=== PATIENT | female | born 1990 | race Caucasian/White ===

== ENCOUNTER → 2016-11-29 | Outpatient (CLI) | payer BC ==
[~2016-11-29] MED LIST: OXYC-57 PO; PRENTAB26 PO
--- NOTE | 2016-11-29 13:58 | MAMMOGRAPHY REPORT ---
ULTRASOUND OF RIGHT BREAST: 11/29/2016 CLINICAL HISTORY: The patient is currently nursing, and has been nursing for approximately 4 months. In August she had an episode of right breast mastitis and had an associated lump at that time. The mastitis resolved on the antibiotics and the lump has slowly become smaller although she can sti ll feel a residual lump. She currently has no erythema or pain of the right breast. COMPARISON: No prior exams were available for comparison. TECHNIQUE: Real-time targeted ultrasound of the right breast was performed. FINDINGS: Real-time, high resolution targeted ultrasound was performed of the area of the palpable lump pointe d out by the patient. It is difficult for the patient to feel the lump today although she could poi nt to the location of the lump. At the site of the palpable lump, in the right breast at 1:00, 6 cm from the nipple, there is a round isoechoic 9 x 9 x 10 mm mass with a thin hypoechoic rim. No inte rnal vascularity is evident. Surrounding expected lactational changes are seen. Given the isoechoi c appearance of the mass and given that the mass is clinically decreased in size, it is probably sasha ign. Some considerations include a clogged milk duct, galactocele, possibly a fibroadenoma/lactatin g adenoma. No fluid collection is seen to suggest abscess. IMPRESSION: ACR-BI-RADS CATEGORY 3: PROBABLY BENIGN - FOLLOW-UP RECOMMENDED Isoechoic 10 mm mass seen within the right breast at 1:00 at the site of the palpable lump which has clinically decreased in size. The mass is probably benign given the isoechoic appearance and given the clinical decrease in size. Recommend follow-up ultrasound of the right breast in 3 months to r gerrivaluate. Also recommend clinical follow-up; if the mass clinically increases in size then follow- up should be obtained sooner. The patient was verbally notified of the results. Lupe Merino M.D. /:11/29/2016 08:20:42 Machine Fastener: Francheska HUERTA)(Luz), [facility] letter sent: Follow Up Recommended 3 BI-RADS Code: ACR-BI-RADS Category 3: Probably Benign
== END | disposition home or self-care (01) ==
LOC: C.MAMM 07:58
PROVIDERS: ATTEND Obstetrics & Gynecology
DX: N63 Unspecified lump in breast (principal)

== ENCOUNTER → 2017-04-14 | Outpatient (CLI) | payer BC ==
[~2017-04-14] MED LIST changes: -OXYC-57 PO
--- NOTE | 2017-04-14 14:31 | MAMMOGRAPHY REPORT ---
ULTRASOUND OF RIGHT BREAST: 04/14/2017 CLINICAL HISTORY: 26-year-old lactating woman presents for follow-up of a benign-appearing mass in th e 1:00 right breast, 6 cm from the nipple. She does not feel the lump today. COMPARISON: Comparison is made to exam dated: 11/29/2016 ultrasound - [facility]. FINDINGS: Targeted ultrasound was performed in the 1:00 right breast to reevaluate the benign-appear ing isoechoic 9 x 9 x 10 mm mass as described on the previous ultrasound. In the 1:00 axis, 6 cm fro m the nipple, a mass is no longer identified. Lactational changes are again noted. IMPRESSION: ACR BI-RADS CATEGORY 2: BENIGN There is resolution of the previously observed mass in the 1:00 right breast, 6 cm from the nipple, c onfirming benignity. There is no targeted sonographic evidence of malignancy. Continued clinical mo nitoring is recommended. These results and recommendations were discussed with the patient at the ti me of the exam. Annette Cuellar M.D. ay/:04/14/2017 09:21:20 Pallet Repairer: Dr. Annette Cuellar, [facility] letter sent: Normal 1/2 BI-RADS Code: ACR BI-RADS Category 2: Benign
== END | disposition home or self-care (01) ==
LOC: C.MAMM 08:50
PROVIDERS: ATTEND Physician Assistant
DX: N63 Unspecified lump in breast (principal)

== ENCOUNTER → 2018-04-24 | Outpatient (CLI) | payer OTHER | END | disposition home or self-care (01) | LOC: C.PAPS 13:55 | PROVIDERS: ATTEND Obstetrics & Gynecology | DX: Z34.81 Encounter for supervision of other normal pregnancy, first trimester (principal); Z11.51 Encounter for screening for human papillomavirus (HPV) ==

== ENCOUNTER → 2018-05-04 | Outpatient (CLI) | payer OTHER | END | disposition home or self-care (01) | LOC: C.LAB1850 09:01 | PROVIDERS: ATTEND Obstetrics & Gynecology | DX: O02.1 Missed abortion (principal) ==

== ENCOUNTER → 2018-05-11 | Outpatient (CLI) | payer OTHER | END | disposition home or self-care (01) | LOC: C.LAB1850 08:03 | PROVIDERS: ATTEND Obstetrics & Gynecology | DX: O02.1 Missed abortion (principal) ==

== ENCOUNTER → 2018-05-18 | Outpatient (CLI) | payer OTHER | END | disposition home or self-care (01) | LOC: C.LAB1850 08:09 | PROVIDERS: ATTEND Obstetrics & Gynecology | DX: O02.1 Missed abortion (principal) ==

== ENCOUNTER → 2018-05-27 | Outpatient (CLI) | payer OTHER | END | disposition home or self-care (01) | LOC: C.LAB1850 16:11 | PROVIDERS: ATTEND Obstetrics & Gynecology | DX: O02.1 Missed abortion (principal) ==

== ENCOUNTER 2021-08-02 05:35 | Inpatient (IN) ==
--- NOTE | 2021-07-06 14:00 | Anesthesiology Consultation ---
Date of Service July 06, 2021 Assessment & Plan (1) Encounter for pre-operative examination: Chart Review Chart Review: entry examiner initiated -With initial - patient had high spinal which caused decreased oxygen levels and resulted with patient having to have GA. No issues noted with most recent from 2019. Per nursing assessment 07/06/2021, no recent travel. No known Covid infection in the past 90 days. Patient vaccinated for Covid. No known Covid positive contacts or Covid related symptoms. Preop Covid testing scheduled 07/31/2021. 05/31/2019 = done under SAB at L4-5 with 1 attempt. History Surgery Operation Date: 08/02/21 07:30 Proposed Procedures p Section in LD (Delivery of Baby Through Abdominal Incision) - Sherrill Bennett MD, FACOG s with Bilateral Tubal Ligation - Sherrill Bennett MD, FACOG Height/Weight Height: 5 ft 3 in Weight: 68.946 kg Allergies Allergy/AdvReac Type Severity Reaction Status Date / Time shellfish derived Allergy Mild RASH Verified 07/06/21 11:14 iodine Allergy Unknown RASH Verified 07/06/21 11:14 Medications Home Medications Medication Instructions Recorded Confirmed Last Taken prenat.vits,vlad,omp-utlt-wjeiw 1 tab PO QPM 05/04/19 07/06/21 05/30/19 20:00 valacyclovir 1 gram tablet 1,000 mg PO DAILY PRN #12 tab 05/04/19 07/06/21 Unknown Past Medical History Medical History Dry eye syndrome History of miscarriage, currently Hx of cold sores Past Family History Family History Grandmother (Maternal) Breast cancer Daughter Cavernous malformation Grandmother (Paternal) Diabetes Denies family history of Ovarian cancer Colorectal cancer Uterine cancer Past Surgical History Surgical History History of anesthesia problem WITH INITIAL C SECTION PT WAS GIVEN A HIGH SPINAL AND ENDED UP NEEDING GA DUE TO DROPPING PULSE OX. -NO ISSUES NOTED WITH SUBSEQUENT IN 2019 History of delivery x2 Hx of adenoidectomy Hx of cholecystectomy Nausea and vomiting after administration of anesthetic agent Social History Smoking Status: Never smoker Do You Dip or Chew Tobacco: No Hx Alcohol Use: No Hx Substance Use: No substance use type: does not use
--- NOTE | 2021-08-01 14:03 | History & Physical Report ---
Date of Service August 01, 2021 Assessment & Plan (1) Previous delivery affecting , antepartum: Plan: Repeat section and bilateral tubal ligation The patient was counseled to the nature of the procedure including alternatives such as labor. Risks were discussed including bleeding infection injury to bowel bladder ureter vessels and even baby. The risks of internal organ injury were discussed as being higher with prior sections. Deep Vein Thrombosis, pulmonary embolus and breakdown of the incision discussed. Deep vein thrombosis pulmonary embolus hernia and failure of the incision to heal were discussed Patient verbalized understanding of this and was given ample time to ask questions History of Present Illness Primary Care Provider: NO PCP repeat C/S and tubal ligation Allergies Allergy/AdvReac Type Severity Reaction Status Date / Time shellfish derived Allergy Mild RASH Verified 08/01/21 08:39 iodine Allergy Unknown RASH Verified 08/01/21 08:39 Home Medications Medication Instructions Recorded Confirmed Type prenat.vits,vlad,aja-lnpl-mswfb 1 tab PO QPM 05/04/19 08/01/21 History valacyclovir 1 gram tablet 1,000 mg PO DAILY PRN #12 tab 05/04/19 08/01/21 History Patient History Medical History Dry eye syndrome History of miscarriage, currently Hx of cold sores Surgical History History of anesthesia problem WITH INITIAL C SECTION PT WAS GIVEN A HIGH SPINAL AND ENDED UP NEEDING GA DUE TO DROPPING PULSE OX. -NO ISSUES NOTED WITH SUBSEQUENT IN 2019 History of delivery x2 Hx of adenoidectomy Hx of cholecystectomy Nausea and vomiting after administration of anesthetic agent Family History Grandmother (Maternal) Breast cancer Daughter Cavernous malformation Grandmother (Paternal) Diabetes Denies family history of Ovarian cancer Colorectal cancer Uterine cancer Social History Smoking Status: Never smoker Second Hand Exposure: No; Hx Alcohol Use: No Hx Substance Use: No Preferred Language: Turkmen Communication Ability: Effective Visual Impairment: No Limitations Hearing Ability: Normal Complex Director Required: No Beliefs That Will Affect Care: None marital status: marital status details: Dayday Hernandez (36) [phone] Current Living Situation: Spouse and Family Current Living Situation Comment: lives with spouse, 2 children, dogs, hermit crab, fish, cats-spouse aquilino current occupational status: employed 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
[2021-08-02] MEDS ORDERED: LACTATED RINGER'S 1,000 ML IV SCH ×2 (06:00→08:45)
[2021-08-02] MEDS ORDERED: CITRIC ACID/SODIUM CITRATE 15 ML UDC PO SCH (06:00)
[2021-08-02] MEDS ORDERED: ceFAZolin 2,000 MG in SYRINGE 0 ML IV SCH (06:00)
[2021-08-02 06:07] LABS: Basophils # (auto) 0.03 K/uL (0-0.2); Basophils % (auto) 0.3 %; Eosinophils # (auto) 0.23 K/uL (0-0.5); Eosinophils % (auto) 2.3 %; Hematocrit (blood only) 37.6 % (37-47); Hemoglobin 13.1 g/dL (12.0-16.0); Immature Granulocytes # (auto) 0.21 K/uL (0.00-0.02); Immature Granulocytes % (auto) 2.1 %; Lymphocytes % (auto) 18.8 %; Mean Corpuscular Hemoglobin 32.3 pg (25-34); Mean Corpuscular Volume 92.6 fL (80-100); Monocytes # (auto) 0.64 K/uL (0.11-0.59); Monocytes % (auto) 6.3 %; Neutrophils % (auto) 70.2 %; Platelet Count 171 K/uL (130-400); RDW Coefficient of Variation 13.2 % (11.5-14.5); Red Blood Count 4.06 M/uL (4.2-5.4); White Blood Count 10.11 K/uL (4.8-10.8)
[2021-08-02] MEDS ORDERED: OXYTOCIN 10 UNITS/ML VIAL ONE (06:29)
[2021-08-02] MEDS ORDERED: MoRPHine SULFATE PF 1 MG/ML 10 ML AMP/VIAL ONE (06:29)
[2021-08-02] MEDS ORDERED: fentaNYL citrate 100 MCG/2 ML VIAL ONE (06:29)
[2021-08-02] MEDS ORDERED: PHENYLEPHRINE HCL 10 MG/ML VIAL ONE (06:29)
[2021-08-02] MEDS ORDERED: ONDANSETRON INJ 2 MG/ML 2 ML VIAL ONE (06:29)
[2021-08-02 06:31] LABS: Mean Corpuscular Hgb Conc 34.8 g/dL (32-36)
--- NOTE | 2021-08-02 07:08 | History & Physical Bridge Note ---
Date of Service August 02, 2021 History & Physical Bridge Note I have examined the patient, reviewed the History & Physical and in the interval since the performance of the History & Physical I have noted the following changes of clinical significance: no changes noted
[2021-08-02] MEDS ORDERED: NALOXONE HCL 0.08 MG in SYRINGE 1.8 ML IV PRN (07:52)
[2021-08-02] MEDS ORDERED: diphenhydrAMINE 50 MG/ML VIAL IV PRN (07:52)
[2021-08-02] MEDS ORDERED: NALBUPHINE HCL INJ 10 MG/ML AMP IV PRN (07:52)
[2021-08-02] MEDS ORDERED: ePHEDrine sulfate 50 MG/ML AMP IV PRN (07:52)
[2021-08-02] MEDS ORDERED: NALOXONE HCL 1 MG in SODIUM CHLORIDE 0.9% 1000ML 1,000 ML IV PRN (07:52)
[2021-08-02] MEDS ORDERED: MoRPHine SULFATE PF 1 MG/ML 10 ML AMP/VIAL INT SPINAL ONE (07:52)
[2021-08-02] MEDS ORDERED: NALOXONE HCL 0.4 MG/1 ML VIAL/CARP IV PRN (07:52)
[2021-08-02] MEDS ORDERED: LACTATED RINGER'S 500 ML IV PRN (07:52)
[2021-08-02] MEDS ORDERED: PROMETHAZINE HCL 12.5 MG in SODIUM CHLORIDE 0.9% 50 ML IV PRN (07:53)
[2021-08-02] MEDS ORDERED: ONDANSETRON INJ 2 MG/ML 2 ML VIAL IV PRN (07:53)
[2021-08-02] MEDS ORDERED: NO NARCOTICS OR SEDATIVES SCH (08:00)
[2021-08-02] MEDS ORDERED: SODIUM CHLORIDE 0.9% 1000ML 1,000 ML IV SCH ×2 (08:00→12:15)
[2021-08-02] MEDS ORDERED: HYDROCORTISONE ACETATE 25 MG SUPP PR PRN (08:32)
[2021-08-02] MEDS ORDERED: BENZOCAINE 20% AER SPR 82.5 GM CAN EXT PRN (08:32)
[2021-08-02] MEDS ORDERED: MAGNESIUM HYDROXIDE SUSP 30 ML UDC PO PRN (08:32)
[2021-08-02] MEDS ORDERED: SUPERCREAM 0.870% 15 GM JAR EXT PRN (08:32)
[2021-08-02] MEDS ORDERED: SENNA 8.6 MG TAB PO PRN (08:32)
[2021-08-02] MEDS ORDERED: DIPHTHERIA/TETANUS/PERTUSSIS 0.5 ML SYR/VIAL IM ONE (08:32)
--- NOTE | 2021-08-02 08:50 | Operative Report ---
PG Post Operative Report Pre & Post Diagnosis Operation Date: 08/02/21 07:30 Pre-Op Diagnosis: History of ; Request for Sterilization Post-Op Diagnosis: Same; Delivery of a live male child at 0801 ( Main OR 3) I identified the patient and participated in the time-out.: Yes Procedure Operation Date: 08/02/21 07:30 Actual Procedures p Section in LD (Delivery of Baby Through Abdominal Incision) - Sherrill Bennett MD, FACOG s with Bilateral Tubal Ligation - Sherrill Bennett MD, FACOG Surgeon Sherrill Bennett MD, FACOG Traffic Personnel Supervisor Dr. Chappell Estimated Blood Loss 300 Findings Consistent with Post-Op Diagnosis see op note Specimens Bilateral tube portions, cord blood, hases Drains Jackson Description of Procedure Regional anesthetic was given by anesthesia patient had a Jackson catheter inserted by nursing patient was prepped and draped in supine position with a leftward tilt preoperative antibiotics were given timeout performed Pickups with teeth were used to test the skin site and it was found adequate for incision scalpel used to make a Pfannenstiel incision cutting down through subcutaneous fat through the fascia fascia was then dissected laterally with the curved Gonsalez's fascia was released superiorly and inferiorly from the rectus muscles with the curved Gonsalez scissors, rectus muscle split peritoneal cavity entered in a superior location. Opening enlarged to allow exposure bladder retractor placed Metzenbaums used to dissect away the bladder flap low segment transverse incision made on the uterus with scalpel entry was done bluntly with the centrifuge separator operator's finger hysterotomy incision extended with the centrifuge separator operator's finger in the usual fashion baby was delivered then by attempted flexion of the head, but it would not come. Vacuum applied and then we were able to deliver the baby's head without difficulty and pressure from the occupational therapy assistant on the abdomen mouth and then nares were suctioned baby was then delivered fully without difficulty without excessive force live vigorous cord clamped and cut cord gases obtained cord blood obtained placenta removed manually within ensured all placenta removed with a moist lap sponge uterus exteriorized IV Pitocin had been started by anesthesia and uterine tone improved. The uterus was closed in 2 layers first layer and 0 Monocryl running locked second layer 0 Monocryl nonlocked Patient requested tubal ligation this was performed first on the right fallopian tube using modified [place] technique Alejandro used to grasp the isthmic portion of the tube and then both distal and proximal ends of the tube near the [place] were sutured with 0 chromic and a second free tie of 0 chromic just adjacent to this tie small portion of fallopian tube then cut out with Metzenbaums and sent to pathology hemostasis excellent. Same process was repeated on the left side. When the uterus was placed back in the peritoneal cavity after suction irrigation we did inspect the tubal regions these were hemostatic rectus muscles were inspected and found to be dry and reapproximated with 0- vicryl. fascia closed with 0 Vicryl subcutaneous fat closed with 3-0 Vicryl prior to this subcutaneous fat was irrigated skin closed with 4-0 subcuticular Monocryl incision Dermabond applied I attest to the content of the Intraoperative Record and any orders documented therein. Any exceptions are noted below. OB Procedure Charges 35081 [id number] Add on Tubal for C/S
[2021-08-02] MEDS: OXYTOCIN 20 UNITS in LACTATED RINGER'S 1,000 ML IV SCH ×2 (09:03→17:22)
[2021-08-02 09:09] LABS: Base Excess Cord Arterial Bld -1.9 mEq/L (-9-1.8); CO2 Cord Arterial Blood 60 mmHg (39.1-73.5); HCO3 Cord Arterial Blood 26 mmol/L (19.7-28.5); PO2 Cord Arterial Blood 19 mmHg (4.1-31.7); pH Cord Arterial Blood 7.26 (7.1-7.38)
[2021-08-02 09:13] LABS: Base Excess Cord Venous Blood -0.9 mEq/L (-7.7-1.9); Cord Venous Blood HCO3 26 mmol/L (18.4-26.8); Cord Venous Blood PCO2 50 mmHg (30.4-57.2); Cord Venous Blood PO2 21 mmHg (14.1-43.3); Cord Venous Blood pH 7.33 (7.20-7.44)
[2021-08-02 09:21] LABS: O2 Saturation Cord Venous Bld < 60.0 % (<68); Oxygen Sat Cord Arterial Blood < 60.0 % (<60)
--- NOTE | 2021-08-02 10:00 | Anesthesiology Progress Note ---
Date of Service August 02, 2021 Anesthesia Post Procedure Vital Signs Vital Signs: Temp Pulse Resp BP Pulse Ox 08/02/21 09:57 62 100 08/02/21 09:52 56 L 119/56 L 99 08/02/21 09:51 20 08/02/21 09:47 72 98 08/02/21 09:42 72 97 08/02/21 09:41 20 08/02/21 09:37 63 98 08/02/21 09:32 61 98 08/02/21 09:31 60 20 111/71 08/02/21 09:27 61 98 08/02/21 09:22 72 98 08/02/21 09:21 60 20 109/72 08/02/21 09:17 57 L 98 08/02/21 09:16 71 91 08/02/21 09:11 70 18 104/67 99 08/02/21 09:06 71 99 08/02/21 09:01 60 20 105/66 98 08/02/21 08:56 66 97 08/02/21 08:51 61 97 08/02/21 08:50 97.7 F 64 20 98/62 L 08/02/21 05:47 97.9 F 77 18 109/71 08/02/21 05:45 77 109/71 Transfer of Care Handoff Completed per policy Notes Mental Status: alert / awake / arousable and participated in evaluation Patient Amnestic to Procedure: Yes Nausea / Vomiting: adequately controlled Pain: adequately controlled Airway Patency, RR, SpO2: stable & adequate BP & HR: stable & adequate Hydration State: stable & adequate Neuraxial Anesthesia: was administered and sensory block is resolving Anesthetic Complications: no major complications apparent and Pt Satisfied with anesthetic care
[2021-08-02] MEDS ORDERED: ACETAMINOPHEN 1000 MG/100 ML IV IV PRN (12:15)
[2021-08-02] MEDS ORDERED: HYDROmorphone INJ 0.5 MG/0.5 ML SYR IV PRN (12:15)
[2021-08-02] MEDS ORDERED: KETOROLAC 30 MG/ML VIAL IV PRN (12:15)
[2021-08-02] MEDS: SIMETHICONE 80 MG CHEW PO SCH ×3 (14:42→19:18)
[2021-08-02] MEDS ORDERED: DOCUSATE SODIUM 100 MG CAP PO ONE (19:17)
[2021-08-02] MEDS: DOCUSATE SODIUM 100 MG CAP PO SCH (19:18)
[2021-08-03] MEDS ORDERED: DC INTRASPINAL MORPHINE ONE (01:52)
[2021-08-03] MEDS ORDERED: diphenhydrAMINE Capsule 25 MG CAP PO PRN (01:53)
[2021-08-03] MEDS ORDERED: MEPERIDINE HCL 50 MG/ML CARP IV PRN (01:53)
[2021-08-03] MEDS ORDERED: ONDANSETRON INJ 2 MG/ML 2 ML VIAL IV PRN (01:53)
[2021-08-03] MEDS ORDERED: PROMETHAZINE HCL 25 MG in SODIUM CHLORIDE 0.9% 50 ML IV PRN (01:53)
[2021-08-03] MEDS ORDERED: diphenhydrAMINE 50 MG/ML VIAL IV PRN (01:53)
[2021-08-03] MEDS ORDERED: KETOROLAC 30 MG/ML VIAL IV PRN (01:53)
[2021-08-03] MEDS ORDERED: oxyCODONE/ACETAMINOPHEN 5mg/325mg TAB PO PRN (01:53)
[2021-08-03 06:02] LABS: Basophils # (auto) 0.01 K/uL (0-0.2); Basophils % (auto) 0.1 %; Eosinophils # (auto) 0.15 K/uL (0-0.5); Eosinophils % (auto) 0.9 %; Hematocrit (blood only) 35.4 % (37-47); Hemoglobin 12.5 g/dL (12.0-16.0); Immature Granulocytes # (auto) 0.18 K/uL (0.00-0.02); Immature Granulocytes % (auto) 1.1 %; Lymphocytes # (auto) 0.69 K/uL (1.2-3.4); Lymphocytes % (auto) 4.2 %; Mean Corpuscular Hemoglobin 32.3 pg (25-34); Mean Corpuscular Hgb Conc 35.3 g/dL (32-36); Mean Corpuscular Volume 91.5 fL (80-100); Mean Platelet Volume 9.9 fL (7.4-10.4); Monocytes # (auto) 0.62 K/uL (0.11-0.59); Monocytes % (auto) 3.8 %; Neutrophils # (auto) 14.62 K/uL (1.4-6.5); Neutrophils % (auto) 89.9 %; Platelet Count 151 K/uL (130-400); RDW Coefficient of Variation 13.2 % (11.5-14.5); RDW Standard Deviation 43.5 fL (36.4-46.3); Red Blood Count 3.87 M/uL (4.2-5.4); White Blood Count 16.27 K/uL (4.8-10.8)
--- NOTE | 2021-08-03 06:41 | Obstetrical Progress Note ---
Date of Service <Tanna Torres DO - Last Filed: 08/03/21 07:04> August 03, 2021 Assessment & Plan <Tanna Torres DO - Last Filed: 08/03/21 07:04> (1) examination following delivery: 30 yo post op day1 from c/s, doing well. -Continue routine post care. Keep surgical scar clean and dry. -vital signs reviewed and WNL (Tmax 37.1) -Blood Type A+, GBS-, Rubella Immune -Encourage ambulation, monitor and control pain with Motrin, tylenol PRN, resume regular diet, monitor lochia -encourage breast feeding -hemoglobin 12.5 Day #:: 1 <Sherrill Bennett MD, FACOG - Last Filed: 08/03/21 07:15> (1) examination following delivery: Subjective <Tanna Torres DO - Last Filed: 08/03/21 07:04> Ambulation: ambulating normally Voiding: no voiding problems and no incontinence Passing Gas:: Yes Diet Tolerance:: regular diet Lochia:: Small Feeding Type:: breast feeding Current Pain Level(1-10): 5 (when walking) Review of Systems Denies fever, chills, sweats Denies shortness of breath, difficulty breathing, chest pain, palpitations, chest pressure. Denies breast pain. Denies dysuria. Denies headache or changes in vision. Physical Exam <Tanna Torres DO - Last Filed: 08/03/21 07:04> General: Alert, oriented. No acute distress. Cardiac: Regular rate and rhythm, no murmurs/rubs/gallops. Respiratory: Clear to auscultation bilaterally a/p, no wheezes/rales/rhonchi. No increased work of breathing. Symmetrical chest rise. No respiratory distress. Abdomen: Soft, nontender, nondistended. Bowel sounds present. Uterus: Uterine fundus firm, palpable 1 cm below umbilicus. Surgical scar clean and healing well. Lower Extremities: No lower extremity edema or swelling. No deep calf pain. Jamie's negative bilaterally. Results & Data ([facility]) <Tanna Torres DO - Last Filed: 08/03/21 07:04> Vital Signs (Past 12 Hours) Vital Signs Temp Pulse Resp BP Pulse Ox 08/03/21 03:15 37.1 C 72 16 100/62 96 08/03/21 01:30 16 97 08/03/21 00:40 16 95 08/02/21 23:30 37.2 C 81 16 109/68 97 08/02/21 22:00 20 96 08/02/21 20:15 37.2 C 82 20 101/62 96 <Sherrill Bennett MD, FACOG - Last Filed: 08/03/21 07:15> Co-Signing Physician Notes Resident Physician Supervision Note: I was present with Dr. Torres during the history and exam. I discussed the case with the resident and agree with the findings and plan as documented in the note. Any exceptions or clarifications are listed here: [None] Documented By: Sherrill Bennett MD, FACOG Resident Activity Tracking <Tanna oTrres DO - Last Filed: 08/03/21 07:04> Resident Involvement: Resident Care Provided Care Provided: OB Delivery
[2021-08-03] MEDS: DOCUSATE SODIUM 100 MG CAP PO SCH ×2 (08:29→20:17)
[2021-08-03] MEDS: PRENATAL VITAMIN 1 TAB PO SCH (08:29)
[2021-08-03] MEDS: SIMETHICONE 80 MG CHEW PO SCH ×4 (08:29→20:16)
[2021-08-03] MEDS: IBUPROFEN 600 MG TAB PO PRN ×4 (08:30→21:39)
[2021-08-03] MEDS: FERROUS SULFATE 325 MG TAB PO SCH (08:30)
[2021-08-03] MEDS ORDERED: bisacodyL 5 MG TABEC PO SCH (20:00)
[2021-08-03 21:16] VITALS: O2SAT 98
[2021-08-04] MEDS: IBUPROFEN 600 MG TAB PO PRN ×2 (05:20→08:58)
[2021-08-04 06:46] LABS: Hemoglobin 11.6 g/dL (12.0-16.0)
--- NOTE | 2021-08-04 06:51 | Obstetrical Progress Note ---
Date of Service <Tanna Torres DO - Last Filed: 08/04/21 07:41> August 04, 2021 Assessment & Plan <Tanna Torres DO - Last Filed: 08/04/21 07:41> (1) examination following delivery: 30 yo post op day2 from c/s, doing well. -Continue routine post care. Keep surgical scar clean and dry. -vital signs reviewed and WNL (Tmax 37.2) -Blood Type A+, GBS-, Rubella Immune -Encourage ambulation, monitor and control pain with Motrin, tylenol PRN, resume regular diet, monitor lochia -encourage breast feeding -hemoglobin 11.6 -patient comfortable going home today Day #:: 2 <Marcia Gasca MD, FACOG - Last Filed: 08/04/21 08:06> (1) examination following delivery: Subjective <Tanna Torres DO - Last Filed: 08/04/21 07:41> Ambulation: ambulating normally Voiding: no voiding problems Passing Gas:: Yes Diet Tolerance:: regular diet Lochia:: Small Feeding Type:: breast feeding Current Pain Level(1-10): 5 (when getting up) Review of Systems Denies fever, chills, sweats Denies shortness of breath, difficulty breathing, chest pain, palpitations, chest pressure. Denies breast pain. Denies dysuria. Denies headache or changes in vision. Physical Exam <Tanna Torres DO - Last Filed: 08/04/21 07:41> General: Alert, oriented. No acute distress. Cardiac: Regular rate and rhythm, no murmurs/rubs/gallops. Respiratory: Clear to auscultation bilaterally a/p, no wheezes/rales/rhonchi. No increased work of breathing. Symmetrical chest rise. No respiratory distress. Abdomen: Soft, nontender, nondistended. Bowel sounds present. Uterus: Uterine fundus firm, palpable 1 cm below umbilicus. Surgical scar clean and healing well. Lower Extremities: No lower extremity edema or swelling. No deep calf pain. Jamie's negative bilaterally. Results & Data ([facility]) <Tanna Torres DO - Last Filed: 08/04/21 07:41> Vital Signs (Past 12 Hours) Vital Signs Temp Pulse Resp BP Pulse Ox 10/29/21 23:15 37.2 C 80 18 107/66 08/03/21 20:10 36.6 C 69 18 103/70 98 <Marcia Gasca MD, FACOG - Last Filed: 08/04/21 08:06> Co-Signing Physician Notes Resident Physician Supervision Note: I was present with Dr. Torres during the history and exam. I discussed the case with the resident and agree with the findings and plan as documented in the note. Any exceptions or clarifications are listed here: [None] Documented By: Marcia Gasca MD, FACOG Resident Activity Tracking <Tanna Torres DO - Last Filed: 08/04/21 07:41> Resident Involvement: Resident Care Provided Care Provided: OB Delivery
[2021-08-04] MEDS ORDERED: bisacodyL 10 MG SUPP PR PRN (08:33)
[2021-08-04] MEDS: PRENATAL VITAMIN 1 TAB PO SCH (08:57)
[2021-08-04] MEDS: SIMETHICONE 80 MG CHEW PO SCH (08:58)
[2021-08-04] MEDS: DOCUSATE SODIUM 100 MG CAP PO SCH (08:58)
[2021-08-04] MEDS: FERROUS SULFATE 325 MG TAB PO SCH (08:58)
[2021-08-04 09:14] VITALS: BP 116/76; TEMP 98.1
[2021-08-04 11:13] VITALS: PULSE 70
--- NOTE | 2021-08-06 13:42 | Discharge Summary ---
Date of Service August 06, 2021 Admission HPI Per Admitting Provider repeat C/S and tubal ligation Admission Exam (Per Admitting) Constitutional WD/WN, vitals as above well developed and well nourished Respiratory normal respiratory effort, lungs clear to auscultation normal respiratory effort Cardiovascular RRR, no murmur, no edema Gastrointestinal (Abdomen) normal bowel sounds, soft, nontender, no hepatosplenomegaly Discharge Data Consultations 08/02/21 05:36 Consult Anesthesiology Stat Procedures Performed Operation Date: 08/02/21 07:30 Actual Procedures p Section in LD (Delivery of Baby Through Abdominal Incision) - Sherrill Bennett MD, FACOG s with Bilateral Tubal Ligation - Sherrill Bennett MD, FACOG Hospital Course (1) examination following delivery: 30 yo post op day2 from c/s, doing well. -Continue routine post care. Keep surgical scar clean and dry. -vital signs reviewed and WNL (Tmax 37.2) -Blood Type A+, GBS-, Rubella Immune -Encourage ambulation, monitor and control pain with Motrin, tylenol PRN, resume regular diet, monitor lochia -encourage breast feeding -hemoglobin 11.6 -patient comfortable going home today Supervising Physician Co-Signing Physician Notes Resident Physician Supervision Note: I was present with Dr. Torres during the history and exam. I discussed the case with the resident and agree with the findings and plan as documented in the note. Any exceptions or clarifications are listed here: [None] Documented By: Marcia Gasca MD, FACOG Coding Level of Care Code None Diagnoses examination following delivery Z39.2
== END 2021-08-04 10:25 | disposition home or self-care (01) | DRG 785 ==
LOC: 4S1 05:35 → EDSTATUS 07:30 → 4S2 11:00
PROC: M.PPTLD (2021-08-02 07:30)